=== PATIENT | male | born 1990 | race Caucasian/White ===

== ENCOUNTER 2019-06-14 23:47 | Emergency (ER) | payer OTHER, SELFPAY ==
[2019-06-15] VITALS: BP 170/108; PULSE 80; RESP 16; TEMP 37.2; O2SAT 100
--- NOTE | 2019-06-15 00:05 | ED.WOUNDLAC ---
HPI - Wound/Laceration General Chief Complaint: Wound/Laceration Stated Complaint: L THUMB LAC Time Seen by Provider: 06/14/19 23:59 Source: patient and RN notes reviewed Mode of arrival: ambulatory Limitations: no limitations History of Present Illness HPI narrative: A 29 y/o male presents to the ED with a painful laceration to his lt thumb. He states that he was attempting to get the back of his watch off with a pocket knife just [employer], when the knife slipped and cut his lt thumb. He notes that he is unsure of when his last tetanus shot was. Onset (ago): minute(s) Extremity Location: Left: hand (thumb) Place: home Patient tetanus UTD: No Context: accidental Associated symptoms: pain Treatments prior to arrival: bandage Related Data Allergies Allergy/AdvReac Type Severity Reaction Status Date / Time mushroom Allergy Unknown Verified 01/02/16 10:23 Review of Systems Review of Systems: All systems reviewed & are unremarkable except as noted in HPI and below Integumentary/Breasts: Skin/Breast: Reports other (painful laceration to lt thumb) [facility] Past Medical History Medical History (Updated 06/15/19 @ 03:19 by Niki Powell MD) H/O: HTN (hypertension) Surgical History Surgical History (Updated 06/15/19 @ 00:24 by Kolby Garcia) Hx of arthroscopic knee surgery ANN. Social History Social History (Updated 06/15/19 @ 00:24 by Kolby Garcia) Smoking status: Never smoker Comments PCP: Dr. Moe. Exam Const: General: cooperative, no acute distress and alert Nutritional Appearance: well nourished Orientation/consciousness: patient oriented x3 Limitations: no limitations HENMT: Mouth: Yes lip normal and Yes moist mucous membranes Resp: Effort & Inspection: normal respiratory effort Auscultation: clear to auscultation bilaterally Cardio: Rate: regular rate Rhythm: regular rhythm GI: GI Palp: Yes Soft to palpation and No Tenderness to palpation present (GI) Auscultation: normal bowel sounds Skin: General skin exam: normal color Neuro: General: patient oriented x3 Cognition (Neuro): normal cognition Speech: normal speech Extrem: General: normal to inspection, full ROM and no clubbing, cyanosis or edema Left upper extremity: hand laceration (medial aspect of lt tumb 2.5 cm long and does extend into the nail) Psych: Mental Status: mental status grossly normal Affect: normal affect Attitude: cooperative Course Course Emergency Course: Patient counseled on wound care. Tetanus shot updated. Vital Signs Vital signs: Vital Signs Temperature 99.0 F 06/15/19 00:00 Pulse Rate 80 06/15/19 00:00 Respiratory Rate 16 06/15/19 00:00 Blood Pressure 170/108 H 06/15/19 00:00 Pulse Oximetry 100 06/15/19 00:00 Temperature 99.0 F 06/15/19 00:00 Pulse Rate 82 06/15/19 02:30 Respiratory Rate 18 06/15/19 02:30 Blood Pressure 158/84 H 06/15/19 02:30 Pulse Oximetry 98 06/15/19 02:30 Procedures Laceration Laceration 1: Date: 06/15/19 Time: 02:35 Site: hand (thumb) Side (If applicable): left Size (cm): 4 Description: flap and clean Depth: simple, single layer Pre-repair: wound explored and irrigated ====== Skin Level ====== Skin layer closed with: prolene (6 through skin, 2 through nail) and dermabond (Over nail) Size (cm): 5-0 Number of sutures: 8 Technique: simple, interrupted ====== Subcutaneous Layer ====== ====== Muscle Layer ====== ====== Tendon Layer ====== Nerve Block Nerve Block 1: Nerve block date: 06/15/19 Local Anesthetic: bupivacaine 0.5% Side: left Nerve Blocks: digital (Thumb) Procedure Successful: Yes Patient Tolerated Procedure: well Complications: none Critical Care Time Critical Care Time Critical Care Time: No Discharge Plan Discharge Clinical Impression: Laceration of left thumb with damage to n
[2019-06-15] MEDS: TETANUS,DIPHTHERIA,AC PERTUSSIS ADULT 0.5 ML (ADACEL) IM (00:41)
[2019-06-15 02:30] VITALS: BP 158/84; PULSE 82; RESP 18; O2SAT 98
[2019-06-15 03:39] VITALS: BP 132/78; PULSE 78; RESP 18; O2SAT 98
== END 2019-06-15 03:42 | disposition home or self-care (01) ==
PROVIDERS: Emergency Provider Emergency Medicine
DX: S61.112A Laceration without foreign body of left thumb with damage to nail, initial encounter (principal); I10 Essential (primary) hypertension; Z23 Encounter for immunization
CPT/HCPCS: 12002; 90471; 90715; 99282